=== PATIENT | male | born 1990 | race American Indian/Alaskan Native ===

== ENCOUNTER 2017-09-06 16:55 | Emergency (ER) | payer SELFPAY ==
[2017-09-06 17:00] VITALS: BP 129/81; PULSE 85; RESP 20; TEMP 98.8; O2SAT 100
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
== END 2017-09-06 17:59 | disposition home or self-care (01) ==
LOC: C.ER 16:55
DX: S63.502A Unspecified sprain of left wrist, initial encounter (principal); S80.01XA Contusion of right knee, initial encounter; S40.012A Contusion of left shoulder, initial encounter; S80.211A Abrasion, right knee, initial encounter; S40.212A Abrasion of left shoulder, initial encounter; W19.XXXA Unspecified fall, initial encounter; Y93.55 Activity, bike riding